=== PATIENT | male | born 2000 | race Hispanic/Latino ===

== ENCOUNTER 2022-01-31 10:14 | Emergency (ER) | payer BC ==
[2022-01-31] MEDS ORDERED: Sodium Chloride 0.9% 2,000 ML ONE (10:42)
[2022-01-31] MEDS ORDERED: SUMAtriptan Succinate 6 MG/0.5 ML VIAL ONE (11:00)
[2022-01-31] MEDS ORDERED: Insulin Regular 300 UNITS/3 ML VIAL ONE (11:00)
[2022-01-31] MEDS ORDERED: Ondansetron PF 4 MG/2 ML Vial ONE (11:01)
[2022-01-31 11:04] LABS: #Basophils 0.1 thou/uL (0.0-0.2); #Lymphocytes 1.2 thou/uL (1.20-3.40); #Monocytes 0.3 thou/uL (0.11-0.59); #Neutrophils 8.7 thou/uL (1.40-6.50); %Basophils 1.1 % (0.0-1.0); %Eosinophils 0.3 % (0.0-10.0); %Lymphocytes 11.8 % (28.0-48.0); %Monocytes 3.2 % (0.0-4.0); %Neutrophils 83.6 % (31.0-61.0); Hemoglobin 16.6 g/dL (14.0-18.0); Mean Corpuscular Hemoglobin 27.8 pg (25.0-35.0); Mean Corpuscular Volume 86.9 fL (78.0-98.0); Mean Platelet Volume 8.2 fL (7.4-10.4); Platelet Count 331 thou/uL (130-400); RBC Distribution Width 10.9 % (11.5-14.5); Red Blood Cell (RBC) Count 5.99 mill/uL (4.00-5.20); White Blood Cell (WBC) Count 10.4 thou/uL (4.8-10.8)
[2022-01-31 11:17] LABS: ALT (SGPT) 20 U/L (8-55); AST (SGOT) 18 U/L (5-34); Albumin 4.8 g/dL (3.5-5.0); Alkaline Phosphatase 203 U/L (50-130); Anion Gap 28 mmol/L (10-20); BUN (Urea Nitrogen) 16 mg/dL (8.9-20.6); Bilirubin, Total 1.7 mg/dL (0.2-1.2); Calc. Creatinine Clearance 0 mL/min (70-130); Calcium 9.4 mg/dL (7.8-10.44); Carbon Dioxide 15 mmol/L (22-29); Chloride 93 mmol/L (98-107); Globulin 3.3 g/dL (2.4-3.5); Glucose 425 mg/dL (70-105); Lipase 4 U/L (8-78); Magnesium 1.9 mg/dL (1.7-2.2); Potassium 5.3 mmol/L (3.5-5.1); Protein, Total 8.1 g/dL (6.0-8.3); Sodium 131 mmol/L (136-145)
[2022-01-31 12:00] LABS: Bilirubin Negative (Negative); Blood, Urine Negative (Negative); Clarity Clear (Clear); Glucose, Urine (Dipstick) 500 mg/dL (Negative); Ketone, Urine > or equal to 80 mg/dL (Negative); Leukocyte Negative (Negative); Nitrite Negative (Negative); Protein, Urine (Dipstick) Negative (Neg-Trace); Urobilinogen 0.2 mg/dL (Less than 2)
[2022-01-31 12:07] LABS: Base Excess-Venous -11.8 mmol/L (-2.0 to 3.0); Bicarbonate (HCO3v) 14.5 mmol/L (22.0-28.0); CO2 Tension (PvCO2) 34.1 mmHg (42.0-51.0); Calcium, Ionized 1.12 mmol/L (1.15-1.33); Chloride 102 mmol/L (98-107); Hemoglobin - Calc 17.9 g/dL (14.0-18.0); Potassium 4.2 mmol/L (3.5-5.1); Sodium 131 mmol/L (138-145); T. Carbon Dioxide 15.5 mmol/L (22.0-28.0); vO2 Saturation-calc 82.9 % (60.0-85.0)
== END 2022-01-31 12:35 | disposition short-term general hospital (02) ==
LOC: MADERS 10:14
DX: E10.10 Type 1 diabetes mellitus with ketoacidosis without coma (principal); E87.5 Hyperkalemia; Z79.4 Long term (current) use of insulin
CPT/HCPCS: 36416; 71045; 80053; 81003; 82330; 82803; 83690; 83735; 85025; 94760; 96365; 96375; 96376; 36415-59; J1815; J2405; J3030; J7050